=== PATIENT | male | born 1985 | race Caucasian/White ===

== ENCOUNTER 2019-01-23 10:16 | Emergency (ER) | payer OTHER ==
[~2019-01-23] VITALS: Ht 170.2 cm; Wt 95.2 kg
[~2019-01-23 10:16] MED LIST: CLIN150 PO; Cyclobenzaprine5 MG PO; HYDACE5 PO; HYDMOR2 PO; IBUP600 PO; IBUP800 PO; KETO10 PO; METO10 PO; Naprosyn500 MG PO; ONDA4 PO; OXYACE5T PO; PROM25 PO; PSEU120ER PO; Percocet 5-3251 EACH PO; RXANTBENOT AU; RXCLIN PO; RXHYDACE PO; RXHYDMOR2 PO; RXOXYACE PO; TAMS.4ER PO; TRAM50 PO; Valium5 MG PO; Zofran Odt8 MG SL
[2019-01-23] MEDS ORDERED: LISI5 PO (10:36)
[2019-01-23 11:05] LABS: BASOPHILS ABSOLUTE AUTO 0.03 K/mm3 (0.00-0.23); BASOPHILS PERCENT AUTO 0 % (0-2); EOSINOPHILS ABSOLUTE AUTO 0.03 K/mm3 (0.00-0.68); EOSINOPHILS PERCENT AUTO 0 % (0-6); Hematocrit 53.9 % (37.0-53.0); Hemoglobin 18.2 g/dL (13.5-17.5); IMMATURE GRAN ABSOLUTE AUTO 0.04 K/mm3 (0.00-0.10); IMMATURE GRAN PERCENT AUTO 1 % (0-1); LYMPHOCYTES ABSOLUTE AUTO 0.77 K/mm3 (0.84-5.20); LYMPHOCYTES PERCENT AUTO 9 % (21-46); MONOCYTES ABSOLUTE AUTO 0.93 K/mm3 (0.16-1.47); MONOCYTES PERCENT AUTO 11 % (4-13); Mean Corpuscular HGB 30.2 pg (26.0-34.0); Mean Corpuscular HGB Conc 33.8 g/dL (31.5-36.5); Mean Corpuscular Volume 90 fL (80-100); NEUTROPHILS ABSOLUTE AUTO 6.55 K/mm3 (1.96-9.15); NEUTROPHILS PERCENT AUTO 78 % (41-73); Platelet Count 213 K/mm3 (150-400); RDW Coefficient Variation 12.1 % (11.7-14.2); RDW Standard Deviation 39.7 fL (35.1-46.3); Red Blood Cell Count 6.02 M/mm3 (4.30-5.90); White Blood Cell Count 8.35 K/mm3 (4.00-11.30)
[2019-01-23 11:22] LABS: Alanine Aminotransfer (ALT/SGP 46 U/L (12-78); Alk Phos 88 U/L (50-136); Anion Gap 5 mmol/L (6-16); Aspartate Aminotrans (AST/SGOT 20 U/L (12-37); Bilirubin, Total 0.8 mg/dL (0.1-1.0); Blood Urea Nitrogen 13 mg/dL (8-24); Bun/Creatinine Ratio 13.7 (12.0-20.0); CO2, Blood 25 mmol/L (21-32); Chloride, Blood 107 mmol/L (98-108); Creatinine, Blood 0.95 mg/dL (0.60-1.20); Glomerular Filtration Rate >60 (60-); Glucose, Blood 89 mg/dL (70-99); Potassium, Blood 3.9 mmol/L (3.5-5.5); Sodium, Blood 137 mmol/L (136-145)
[2019-01-23] MEDS ORDERED: Zofran4 MG PO (12:24)
== END 2019-01-23 12:58 | disposition home or self-care (01) ==
LOC: ER 10:16
PROVIDERS: Emergency Medicine
DX: E86.0 Dehydration (principal); R11.2 Nausea with vomiting, unspecified; R19.7 Diarrhea, unspecified; Z88.0 Allergy status to penicillin; Z79.899 Other long term (current) drug therapy; I10 Essential (primary) hypertension; Z87.891 Personal history of nicotine dependence
CPT/HCPCS: 36415; 80053; 83690; 85025; 96374; 96375; 99284-25; J1885; J2405; J7030

== ENCOUNTER 2020-12-02 10:57 | Emergency (ER) | payer OTHER ==
[~2020-12-02] VITALS: Ht 170.2 cm; Wt 108.4 kg
[~2020-12-02 10:57] MED LIST changes: +LISI5 PO; +Zofran4 MG PO
[2020-12-02] MEDS ORDERED: IBUP400 PO (12:50)
[2020-12-02] MEDS ORDERED: CYCL10 PO (12:50)
[2020-12-02] MEDS ORDERED: HYDR1TAB94 PO (12:50)
== END 2020-12-02 13:15 | disposition home or self-care (01) ==
LOC: ER 10:57
DX: R07.81 Pleurodynia (principal); I10 Essential (primary) hypertension; Z88.0 Allergy status to penicillin; Z79.899 Other long term (current) drug therapy; Z87.442 Personal history of urinary calculi
CPT/HCPCS: 71046; 96372; 99283-25; J1885